=== PATIENT | male | born 1980 | race Hispanic/Latino ===

== ENCOUNTER 2022-06-15 13:31 | Emergency (ER) | payer SELFPAY ==
[2022-06-15 15:43] LABS: SARS-CoV-2 NAA Rapid Test Not Detected (NotDetected)
== END 2022-06-15 15:00 | disposition home or self-care (01) ==
LOC: CSHERS 13:31
DX: B34.9 Viral infection, unspecified (principal); Z20.822 Contact with and (suspected) exposure to COVID-19
CPT/HCPCS: 36416; 99283

== ENCOUNTER 2022-07-25 08:04 | Emergency (ER) | payer SELFPAY ==
[2022-07-25] MEDS ORDERED: Acetaminophen 500 MG TAB ONE (08:23)
[2022-07-25] MEDS ORDERED: Ketorolac Tromethamine 30 MG/ML VIAL ONE (08:36)
[2022-07-25 08:42] LABS: #Neutrophils 6.7 10x3/uL (1.5-8.4); %Basophils 0.4 % (0.0-2.0); %Eosinophils 0.1 % (0.0-6.0); %Lymphocytes 8.8 % (18.0-47.0); %Monocytes 11.4 % (0.0-10.0); %Neutrophils 78.9 % (40.0-75.0); Hemoglobin 14.8 g/dL (13.5-17.5); Mean Corpuscular HGB CONC 35.1 g/dL (32.0-36.0); Mean Corpuscular Hemoglobin 30.5 pg (27.0-33.0); Mean Platelet Volume 9.5 fl (7.4-10.4); Platelet Count 293 10x3/uL (150-450); RBC Distribution Width 12.4 % (11.5-14.5); Red Blood Cell (RBC) Count 4.85 10x6/uL (4.32-5.72); White Blood Cell (WBC) Count 8.4 10x3/uL (3.5-10.5)
[2022-07-25 09:02] LABS: SARS-CoV-2 NAA Rapid Test Not Detected (NotDetected)
[2022-07-25 09:18] LABS: ALT (SGPT) 20 U/L (8-55); AST (SGOT) 15 U/L (5-34); Albumin 3.8 g/dL (3.5-5.0); Alkaline Phosphatase 73 U/L (40-110); Anion Gap 12 mmol/L (10-20); BUN (Urea Nitrogen) 14 mg/dL (8.9-20.6); Bilirubin, Total 0.3 mg/dL (0.2-1.2); Calc. Creatinine Clearance 0 mL/min (70-130); Calcium 8.3 mg/dL (7.8-10.44); Carbon Dioxide 19 mmol/L (22-29); Chloride 108 mmol/L (98-107); Estimated GFR 112; Globulin 2.1 g/dL (2.4-3.5); Glucose 101 mg/dL (70-105); Potassium 3.9 mmol/L (3.5-5.1); Protein, Total 5.9 g/dL (6.0-8.3); Sodium 135 mmol/L (136-145)
== END 2022-07-25 09:30 | disposition home or self-care (01) ==
LOC: CSHERS 08:04
DX: J10.1 Influenza due to other identified influenza virus with other respiratory manifestations (principal); Z20.822 Contact with and (suspected) exposure to COVID-19
CPT/HCPCS: 36415; 71045; 80053; 84484; 85025; 93005; 96372; J1885

== ENCOUNTER 2022-12-02 09:39 | Emergency (ER) | payer SELFPAY ==
[2022-12-02 11:45] LABS: SARS-CoV-2 NAA Rapid Test Not Detected (NotDetected)
[2022-12-02] MEDS ORDERED: Dexamethasone 4 MG TAB ONE (13:21)
== END 2022-12-02 13:22 | disposition home or self-care (01) ==
LOC: CSHERS 09:39
DX: B34.9 Viral infection, unspecified (principal); Z20.822 Contact with and (suspected) exposure to COVID-19
CPT/HCPCS: 71045; J8540

== ENCOUNTER 2023-03-05 20:14 | Emergency (ER) | payer SELFPAY ==
[2023-03-05] MEDS ORDERED: Morphine 4 MG/ML VIAL ONE (21:04)
[2023-03-05] MEDS ORDERED: Ondansetron PF 4 MG/2 ML Vial ONE (21:04)
[2023-03-05 21:06] LABS: #Eosinphils 0.1 10x3/uL (0.0-0.5); #Monocytes 1.1 10x3/uL (0.0-1.1); #Neutrophils 5.8 10x3/uL (1.5-8.4); %Basophils 0.3 % (0.0-2.0); %Eosinophils 0.9 % (0.0-6.0); %Lymphocytes 25.1 % (18.0-47.0); %Monocytes 11.8 % (0.0-10.0); %Neutrophils 61.5 % (40.0-75.0); Hemoglobin 13.7 g/dL (13.5-17.5); Mean Corpuscular HGB CONC 34.3 g/dL (32.0-36.0); Mean Corpuscular Volume 87.5 fl (81.2-95.1); Mean Platelet Volume 9.8 fl (7.4-10.4); Platelet Count 325 10x3/uL (150-450); RBC Distribution Width 12.6 % (11.5-14.5); Red Blood Cell (RBC) Count 4.57 10x6/uL (4.32-5.72); White Blood Cell (WBC) Count 9.5 10x3/uL (3.5-10.5)
[2023-03-05 21:18] LABS: ALT (SGPT) 27 U/L (8-55); AST (SGOT) 16 U/L (5-34); Albumin 3.8 g/dL (3.5-5.0); Alkaline Phosphatase 82 U/L (40-110); Anion Gap 14 mmol/L (10-20); BUN (Urea Nitrogen) 16 mg/dL (8.9-20.6); Bilirubin, Total 0.3 mg/dL (0.2-1.2); Calc. Creatinine Clearance 0 mL/min (70-130); Calcium 8.8 mg/dL (7.8-10.44); Carbon Dioxide 23 mmol/L (22-29); Chloride 106 mmol/L (98-107); Estimated GFR 114; Globulin 2.5 g/dL (2.4-3.5); Glucose 110 mg/dL (70-105); Lipase 22 U/L (8-78); Potassium 3.7 mmol/L (3.5-5.1); Protein, Total 6.3 g/dL (6.0-8.3); Sodium 139 mmol/L (136-145)
== END 2023-03-05 22:00 | disposition home or self-care (01) ==
LOC: CSHERS 20:14
DX: R11.10 Vomiting, unspecified (principal); R19.7 Diarrhea, unspecified
CPT/HCPCS: 74177; 80053; 83690; 85025; 96374; 96375; J2270; J2405

== ENCOUNTER 2023-04-20 18:06 | Emergency (ER) | payer SELFPAY ==
[2023-04-20 19:38] LABS: SARS-CoV-2 NAA Rapid Test Not Detected (NotDetected)
== END 2023-04-20 20:00 | disposition home or self-care (01) ==
LOC: CSHERS 18:06
DX: B34.9 Viral infection, unspecified (principal); I10 Essential (primary) hypertension; Z20.822 Contact with and (suspected) exposure to COVID-19
CPT/HCPCS: 99283

== ENCOUNTER 2023-08-27 09:19 | Emergency (ER) | payer SELFPAY ==
[2023-08-27] MEDS ORDERED: Amoxicillin/Potassium Clav 875 MG TAB ONE (09:52)
== END 2023-08-27 09:55 | disposition home or self-care (01) ==
LOC: CSHERS 09:19
DX: K04.7 Periapical abscess without sinus (principal)
CPT/HCPCS: 99283

== ENCOUNTER 2023-09-12 16:08 | Emergency (ER) | payer SELFPAY ==
[2023-09-12] MEDS ORDERED: Dexamethasone 10 MG/ML VIAL ONE (17:09)
[2023-09-12] MEDS ORDERED: Acetaminophen 325 MG TAB ONE (17:09)
[2023-09-12] MEDS ORDERED: Ketorolac Tromethamine 30 MG (1 mL) VIAL ONE (17:09)
== END 2023-09-12 17:32 | disposition home or self-care (01) ==
LOC: CSHERS 16:08
DX: M25.562 Pain in left knee (principal)
CPT/HCPCS: 96372; 99283; J1100; J1885

== ENCOUNTER 2023-10-22 14:19 | Emergency (ER) | payer SELFPAY | END 2023-10-22 14:52 | disposition home or self-care (01) | LOC: CSHERS 14:19 | DX: B86 Scabies (principal) | CPT/HCPCS: 99282 ==

== ENCOUNTER 2024-05-28 21:04 | Emergency (ER) | payer SELFPAY ==
[2024-05-28 22:10] LABS: Anion Gap 15 mmol/L (10-20); BUN (Urea Nitrogen) 23 mg/dL (8.9-20.6); Calc. Creatinine Clearance 0 mL/min (70-130); Carbon Dioxide 22 mmol/L (22-29); Chloride 109 mmol/L (98-107); Potassium 3.8 mmol/L (3.5-5.1); Sodium 142 mmol/L (136-145)
[2024-05-28 22:11] LABS: ALT (SGPT) 32 U/L (8-55); AST (SGOT) 21 U/L (5-34); Albumin 3.8 g/dL (3.5-5.0); Alkaline Phosphatase 95 U/L (40-110); Bilirubin, Total 0.3 mg/dL (0.2-1.2); Calcium 9.3 mg/dL (7.8-10.44); Estimated GFR 109; Globulin 2.7 g/dL (2.4-3.5); Glucose 119 mg/dL (70-105); Protein, Total 6.5 g/dL (6.0-8.3)
[2024-05-28 22:16] LABS: Troponin I Less than 0.010 ng/mL (< 0.028)
[2024-05-28 22:34] LABS: #Basophils 0.04 10x3/uL (0.0-0.2); #Eosinophils 0.11 10x3/uL (0.0-0.5); #Monocytes 0.87 10x3/uL (0.0-1.1); #Neutrophils 4.96 10x3/uL (1.5-8.4); %Basophils 0.4 % (0.0-2.0); %Eosinophils 1.2 % (0.0-6.0); %Lymphocytes 32.5 % (18.0-47.0); %Monocytes 9.8 % (0.0-10.0); %Neutrophils 55.8 % (40.0-75.0); Hemoglobin 13.8 g/dL (13.5-17.5); Mean Corpuscular HGB CONC 34.5 g/dL (32.0-36.0); Mean Corpuscular Hemoglobin 29.8 pg (27.0-33.0); Mean Corpuscular Volume 86.4 fL (81.2-95.1); Mean Platelet Volume 9.6 fL (7.4-10.4); Platelet Count 377 10x3/uL (150-450); Red Blood Cell (RBC) Count 4.63 10x6/uL (4.32-5.72); White Blood Cell (WBC) Count 8.9 10x3/uL (3.5-10.5)
[2024-05-28] MEDS ORDERED: Aspirin Chewable 81 MG TAB ONE (22:48)
[2024-05-28] MEDS ORDERED: fentaNYL 50 mcg/mL 1 mL Vial ONE (23:37)
[2024-05-28 23:47] LABS: Troponin I Less than 0.010 ng/mL (< 0.028)
== END 2024-05-29 02:00 | disposition home or self-care (01) ==
LOC: CSHERS 21:04
DX: R07.89 Other chest pain (principal); F17.210 Nicotine dependence, cigarettes, uncomplicated; Z55.6 Problems related to health literacy
CPT/HCPCS: 36415; 71045; 80053; 84484; 85025; 93005; 96374; J3010